=== PATIENT | female | born 2000 | race African-American/Black ===

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

== ENCOUNTER 2019-05-01 20:23 | Emergency (ER) | payer OTHER ==
[~2019-05-01] VITALS: Ht 167.6 cm; Wt 67.0 kg
[~2019-05-01 20:23] MED LIST: prenatal otc
[2019-05-01 22:15] LABS: BASO % 0.4 % (0.0-1.0); EOS # 0.1 10^3/uL (0.0-0.5); EOS % 0.8 % (0.0-3.0); HEMATOCRIT 35.1 % (36.0-47.0); HEMOGLOBIN 11.9 g/dl (12.0-15.5); LYMPH # 1.4 10^3/uL (1.5-5.0); MEAN CORPUSCULAR HEMOGLOBIN 28.7 pg (27.0-33.0); MEAN CORPUSCULAR HGB CONC 33.9 g/dl (32.0-36.5); MEAN CORPUSCULAR VOLUME 84.6 fl (80.0-96.0); MONO # 0.5 10^3/uL (0.0-0.8); NEUTROPHILS % 77.6 % (36.0-66.0); PLATELET COUNT, AUTOMATED 223 10^3/uL (150-450); RED BLOOD COUNT 4.15 10^6/uL (4.00-5.40)
[2019-05-01 22:41] LABS: BLOOD UREA NITROGEN 7 MG/DL (7-18); CALCIUM LEVEL 8.8 MG/DL (8.5-10.1); CARBON DIOXIDE LEVEL 22 MEQ/L (21-32); CHLORIDE LEVEL 106 MEQ/L (98-107); CREATININE FOR GFR 0.64 MG/DL (0.55-1.30); GLUCOSE, FASTING 80 MG/DL (70-100); HCG, SERUM QUANTITATIVE 104663 MIU/ML; POTASSIUM SERUM 3.9 MEQ/L (3.5-5.1); SODIUM LEVEL 137 MEQ/L (136-145)
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
[2019-05-01 23:29] VITALS: BP 129/63
== END 2019-05-01 23:47 | disposition home or self-care (01) ==
LOC: M ED 20:23
DX: O9A.211 Injury, poisoning and certain other consequences of external causes complicating pregnancy, first trimester (principal); Y04.8XXA Assault by other bodily force, initial encounter; Y92.018 Other place in single-family (private) house as the place of occurrence of the external cause; Z3A.10 10 weeks gestation of pregnancy

== ENCOUNTER 2019-09-16 18:25 | Outpatient (CLI) | payer OTHER ==
[~2019-09-16] VITALS: Ht 167.6 cm; Wt 79.0 kg
--- NOTE | 2019-09-16 20:10 | IPNPDOC ---
Text Note Date of Service The patient was seen on 09/16/19. NOTE Patient is a 18 yo G1 @30wks gestation presents with concern for decreased movement. patient did not feel baby move as often this AM and then did not feel baby move for about 4hrs prior to coming in. She is feeling baby move now. denies ctx/lof/vb. vitals: normal NAD abd: nd, soft,nt fht: 145/mod abimbola/pos accel/no decel toco: quiet a/p patient @ 30wks, normal exam, fht appropriate for gestational age. d/c home with return precautions. DO YOLI Pulliam LUAT N. DO September 16, 2019 20:10
== END 2019-09-16 19:47 | disposition home or self-care (01) ==
LOC: M LDO 18:25
PROVIDERS: ATTEND Obstetrics & Gynecology
DX: O36.8130 Decreased fetal movements, third trimester, not applicable or unspecified (principal); Z3A.30 30 weeks gestation of pregnancy
CPT/HCPCS: 59025; G0378; G0463

== ENCOUNTER 2019-11-24 13:30 | Inpatient (IN) | payer OTHER ==
[2019-11-24] MEDS ORDERED: FENTANYL 2MCG/ML ROPIVACAINE 0.2% IN 0.9% NACL 100ML IVBAG As Ordered ONE (16:21)
[2019-11-24] MEDS ORDERED: OXYTOCIN 30 UNITS IN 0.9% NaCl 500ML IV BAG (J2590) As Ordered ONE (20:21)
[2019-11-24] MEDS ORDERED: OXYTOCIN INJ 10 UNITS/ML VIAL (J2590) As Ordered ONE (20:22)
[2019-11-25] MEDS ORDERED: ACETAMINOPHEN 500 MG TAB As Ordered ONE (06:30)
[2019-11-25] MEDS ORDERED: IBUPROFEN 800 MG TAB As Ordered ONE (15:28)
--- NOTE | 2020-01-02 15:44 | IPN ---
DATE OF DELIVERY: 11/24/2019. This lady came in in spontaneous labor, had a spontaneous vaginal delivery of a live female infant, weighing 7 pounds 12 ounces, 3510 grams, Apgars of 8 and 9 at 1 and 5 minutes respectively. Arterial venous pH was performed. There was terminal meconium at delivery and voiding. The placenta delivered spontaneously thereafter; three vessels in the cord, membranes and tissues intact. The uterus contracted well down on Pitocin. The anterior, posterior and lateral loaiza were intact. Sphincter was tight. Patient and baby tolerated the procedure well. YECENIA
[2020-01-10 21:27] LABS: HEMATOCRIT 38.1 % (36.0-47.0); HEMOGLOBIN 12.7 g/dl (12.0-15.5); MEAN CORPUSCULAR HEMOGLOBIN 30.1 pg (27.0-33.0); MEAN CORPUSCULAR HGB CONC 33.3 g/dl (32.0-36.5); MEAN CORPUSCULAR VOLUME 90.3 fl (80.0-96.0); PLATELET COUNT, AUTOMATED 190 10^3/uL (150-450); RED BLOOD COUNT 4.22 10^6/uL (4.00-5.40); WHITE BLOOD COUNT 10.7 10^3/uL (4.0-10.0)
--- NOTE | 2020-01-22 09:51 | HPE ---
DATE OF ADMISSION: 11/24/2019 This is a 19-year-old 2, para 0 with complaints of contractions every 3- 5 minutes. She has had them since noon. She has no loss of fluid or bleeding. movements have been active. She has no headache or visual disturbances. MEDICAL HISTORY: Noncontributory. SURGICAL HISTORY: Noncontributory. She is taking vitamins. ALLERGIES: No known allergies. FAMILY HISTORY: Great aunt has breast cancer. She has had normal care with no issues. Had early dating ultrasound, which was at 9 weeks 1 day. It puts her at 40 and 1 week of gestation. Her blood type is O positive. Antibody is negative. Urine negative. HIV negative. Hepatitis negative. RPR negative. Rubella immune. Varicella immune. She does not have a Pap smear. She is less than 20 yeas of age. Gonorrhea and chlamydia are negative. One-hour GTT was 92, and she is GBS negative. PHYSICAL EXAMINATION: She appears in distress secondary to contractions. Category one strip. Pelvic examination: 5 cm, bulging membranes, -3 station. We discussed the risks and benefits of vaginal delivery, some of which include hemorrhage, infection, reoperation, emergency section for medically indicated conditions and for indications. We also discussed the risks and benefits of operative vaginal delivery, which may include scratches, hematomas, or intracranial bleed to the fetus or admission to the intensive care unit (NICU). Also repair of any vaginal lacerations from delivery and/or episiotomy repair. There could also be possibility of urinary incontinence or fecal incontinence postdelivery. Patient expressed understanding of the delivery process. All questions were answered. Epidural was offered, and the patient at the present time has declined MTDD
--- NOTE | 2020-01-25 17:37 | DN ---
DATE OF DELIVERY: 11/24/2019 This lady is a 19-year-old 2, para 0, admitted in active labor at 40 and 2 weeks of gestation. With epidural in place, had a spontaneous vaginal delivery of a female , 7 pounds 12 ounces, 3510 grams, scores of 8 and 9 at one and five minutes, respectively. Terminal meconium and voiding at the delivery. Arterial pH was 7.17, base excess was -7.8. Venous pH was 7.32, base excess was -4.4. Placental delivered spontaneously thereafter. Three vessels in the cord. Membranes and tissues intact. The perineum anterior, posterior, and lateral loaiza were intact. Sphincter was tight. Uterus contracted well down on Pitocin. Patient and baby tolerating procedure well. [facility]
--- NOTE | 2020-01-26 11:36 | IPN ---
DATE: 11/24/2019 This lady had at 2200 hours a spontaneous deceleration. Went from occiput transverse (OT) to occiput anterior (OA). Recovered. Contractions were 2 minutes apart. Reduced variability with positional change and intravenous (IV) fluids and oxygen. Came back with a category 1 strip. Safe to proceed. MTDD
--- NOTE | 2020-01-26 11:37 | IPN ---
DATE: 11/24/2019 This lady had an epidural in place. On examination, she was 8 cm dilated, an artificial rupture of membranes (AROM) draining clear liquor. Patient went from the OT to OP position, asynclitic at the time, -3 station, 80% effaced, category 1 strip, and safe to proceed. MTDD
--- NOTE | 2020-01-26 11:37 | IPN ---
DATE: 11/25/2019 This lady is a 2, now para 1, admitted in active labor at 40 and 2 weeks of gestation. She had a spontaneous vaginal delivery, female infant, 7 pounds 12 ounces, 3510 grams, scores of 8 and 9 at one and five minutes, respectively. Arterial pH 7.17, base excess -7.8, venous pH 7.32, base excess - 4.4. On her first day, we discussed phlebitis, cystitis, mastitis, metritis, cellulitis, diet, exercise, pain management, and perineal, breast, and wound care. Her blood pressure this morning is 135/81, respirations 18, pulse 90, temperature 98.1. Hemoglobin 12.7, hematocrit 38.1, and platelets are 190. The rest of the examination unremarkable. She is normocephalic, atraumatic. Neck: Full rupture of membranes. Pupils equal and reactive to light. Distal pulses are symmetric. No evidence of deep venous thrombosis (DVT), pulmonary embolus (PE), or superficial phlebitis. Chest is clear bilaterally to bases. No wheezes or rhonchi. No costovertebral angle (CVA) tenderness. Abdomen soft. Uterus 2 below. Lochia is moderate. She has no urgency, frequency. No nausea, vomiting, diarrhea, or constipation. In summary, we have a term gestation, delivered a live- female infant. Breast-feeding is going well. Plan is for discharge tomorrow. 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 A 6-week checkup at [facility]. All questions were answered. A 20-minute discussion. YECENIA
[2020-02-12 10:01] LABS: CORD GAS ABE V -4.4; CORD GAS HCO3 V 21.6 MEQ/L; CORD GAS PCO2 V 42.5 mmHg; CORD GAS PH A 7.172 UNITS; CORD GAS PH V 7.323 UNITS; CORD GAS PO2 V 35.2 mmHg; CORD GAS SBC V 20.4 MEQ/L; CORD GAS TCO2 V 22.9 MEQ/L
[2020-02-12 10:02] LABS: CORD GAS ABE A -7.8; CORD GAS O2 SAT A 25.2 %; CORD GAS PCO2 A 60.8 mmHg; CORD GAS SBC A 16.6 MEQ/L; CORD GAS TCO2 A 23.6 MEQ/L
== END 2019-11-26 09:30 | disposition home or self-care (01) | DRG 807 ==
LOC: M LDI 13:30
PROVIDERS: ATTEND Obstetrics & Gynecology
PROC: 10E0XZZ Delivery of Products of Conception, External Approach (ICD-10-PCS; principal; 2019-11-24)
PROC: 10907ZC Drainage of Amniotic Fluid, Therapeutic from Products of Conception, Via Natural or Artificial Opening (ICD-10-PCS; 2019-11-24)
DX: O48.0 Post-term pregnancy (principal); Z37.0 Single live birth; Z3A.40 40 weeks gestation of pregnancy; O76 Abnormality in fetal heart rate and rhythm complicating labor and delivery

== ENCOUNTER 2021-01-19 10:47 | Emergency (ER) | payer OTHER ==
[~2021-01-19] VITALS: Ht 167.6 cm; Wt 71.9 kg
[2021-01-19 12:13] LABS: BASO % 0.7 % (0.0-1.0); EOS # 0.2 10^3/uL (0.0-0.5); EOS % 3.2 % (0.0-3.0); HEMATOCRIT 40.1 % (36.0-47.0); LYMPH # 1.5 10^3/uL (1.5-5.0); LYMPH % 25.6 % (24.0-44.0); MEAN CORPUSCULAR HEMOGLOBIN 28.6 pg (27.0-33.0); MEAN CORPUSCULAR HGB CONC 32.4 g/dl (32.0-36.5); MEAN CORPUSCULAR VOLUME 88.1 fl (80.0-96.0); MONO # 0.4 10^3/uL (0.0-0.8); MONO % 5.8 % (2.0-8.0); NEUTROPHILS # 3.9 10^3/uL (1.5-8.5); NEUTROPHILS % 64.4 % (36.0-66.0); PLATELET COUNT, AUTOMATED 214 10^3/uL (150-450); RED BLOOD COUNT 4.55 10^6/uL (4.00-5.40)
[2021-01-19 12:31] LABS: BLOOD UREA NITROGEN 10 MG/DL (7-18); CALCIUM LEVEL 9.6 MG/DL (8.5-10.1); CARBON DIOXIDE LEVEL 29 MEQ/L (21-32); CHLORIDE LEVEL 107 MEQ/L (98-107); CREATININE FOR GFR 0.83 MG/DL (0.55-1.30); GLOMERULAR FILTRATION RATE > 60.0 (>60); GLUCOSE, FASTING 75 MG/DL (70-100); POTASSIUM SERUM 4.3 MEQ/L (3.5-5.1); SODIUM LEVEL 140 MEQ/L (136-145)
[2021-01-19] MEDS ORDERED: FLAG500T PO (13:24)
[2021-01-19] MEDS ORDERED: DIFL150T PO (13:24)
[2021-01-19 13:33] VITALS: BP 129/68
[2021-01-19 14:01] LABS: GC DNA AMPLIFICATION NEGATIVE (NEGATIVE)
== END 2021-01-19 13:42 | disposition home or self-care (01) ==
LOC: M ED 10:47
DX: N76.0 Acute vaginitis (principal); B37.3 Candidiasis of vulva and vagina; Z87.59 Personal history of other complications of pregnancy, childbirth and the puerperium